=== PATIENT | female | born 1955 | race Caucasian/White ===

== ENCOUNTER 2023-10-05 06:29 | Day surgery (SDC) | payer MEDICARE, OTHER, SELFPAY ==
[2023-10-05 09:43] LABS: Glucose - Point of Care 137 mg/dl (70-99)
[2023-10-05 11:45] LABS: Glucose - Point of Care 127 mg/dl (70-99)
== END 2023-10-05 11:55 | disposition home or self-care (01) ==
LOC: SDS 06:29
PROVIDERS: ATTENDING PHYSICIAN Internal Medicine Gastroenterology
DX: K74.60 Unspecified cirrhosis of liver (principal); K22.2 Esophageal obstruction; K44.9 Diaphragmatic hernia without obstruction or gangrene; K31.89 Other diseases of stomach and duodenum
CPT/HCPCS: 43239; 88305; 82962; 88342

== ENCOUNTER → 2024-01-27 09:28 | Outpatient (REF) | payer MEDICARE, OTHER, SELFPAY | LOC: HWRAD 09:28 | PROVIDERS: ATTENDING PHYSICIAN Internal Medicine Transplant Hepatology; FAMILY PHYSICIAN Nurse Practitioner | DX: K74.69 Other cirrhosis of liver (principal) | CPT/HCPCS: 76700 ==

== ENCOUNTER 2025-07-06 23:13 | Inpatient (IN) | payer MEDICARE, OTHER, SELFPAY ==
[2025-07-06 17:01] VITALS: BMI 23.8
[2025-07-06 17:07] VITALS: BP 138/71
[2025-07-06 18:07] LABS: Hematocrit 40.3 % (37.0-47.0); Hemoglobin 13.0 g/dL (12.0-16.0); Mean Corp Hgb Conc. 32.3 g/dL (33.0-37.0); Mean Corpuscular Volume 80.6 fL (81.0-99.0); Nucleated Red Blood Cells % 0 %; Platelet Count 119 10^3/uL (130-400); Red Cell Dist. Width 15.1 % (11.5-14.5)
[2025-07-06 18:08] LABS: Urine Character Slightly Cloudy (Clear)
[2025-07-06 18:18] LABS: ALT (SGPT) 39 U/L (0-35); AST (SGOT) 43 U/L (14-36); Albumin 4.6 g/dl (3.5-5.0); Alkaline Phosphatase 175 U/L (38-126); Blood Urea Nitrogen 14 mg/dl (7-17); Calcium 9.8 mg/dl (8.4-10.2); Carbon Dioxide 24 mmol/L (22-30); Chloride 102 mmol/L (98-107); Glucose 204 mg/dl (70-99); Potassium 4.1 mmol/L (3.5-5.1); Sodium 137 mmol/L (135-145); Total Protein 7.9 g/dl (6.3-8.2); eGFR > 60.00
[2025-07-06] MEDS: NSS 1000 IV (18:29)
[2025-07-06 18:32] LABS: Urine Red Blood Cell 26-30 /HPF (0-2); Urine Squamous Cell >30 /LPF (Few)
--- NOTE | 2025-07-06 18:33 | ED.GENMED ---
History of Present Illness
General
Chief Complaint: Change in Mental Status
Time Seen by Provider: 07/06/25 18:17
Nursing documentation reviewed up to this point in time: agreed with
History of Present Illness
History of Present Illness:
69-year-old female brought to the ER by her for evaluation of generalized weakness, abruptly worsening dementia symptoms and poor appetite today. Patient was treated for UTI 2 weeks ago. She typically is able to ambulate independently but
has been reliant upon her due to witnessed unsafe gait today. No reported trauma. She is not on any blood thinners. She had a cough last week but this has improved. Has reports she has not had anything to eat today. He got her to drink
a juice box and that is all. She is an unreliable historian due to her history of dementia
Past History
Past History
ED Past Medical History: Arrthythmia (SVT), Asthma, GERD, HTN (3 meds) and Other
ED Past Surgical History: and Gynecological
Social History
Tobacco: Non-smoker
Alcohol: Occasional
Drug: None
Personal:
Living: with family
Employment: Employed
Family History
Family History: Hypertension
Review of Systems
Review of Systems
Allergies reviewed?: Yes
Phy Exam
Physical Exam
Physical Exam:
Patient is awake, alert, appears in no acute distress, head is NCAT, PERRL, EOMI mucous membranes tacky, conjunctiva pink, heart regular rate and rhythm without murmurs or ectopy, lungs are clear to auscultation without wheezes rales or rhonchi, no
JVD, abdomen is soft and nontender on palpation, extremities without edema, GCS is 14 due to confusion, left lower extremity with bright red erythematous blanching and tender raised rash on the anterior lower leg measuring 20 x 10 cm, increased
temperature overlying this rash compared to surrounding tissue, no calf pain on palpation, 2+ DP pulses present symmetric bilateral feet
Course
Orders/Labs/Results
Orders:
Orders
07/06/25 17:31
Complete Blood Count/With Diff Urgent
Comprehensive Metabolic Panel Urgent
Urinalysis Reflex To Culture Urgent
Date Specimen was Collected: 07/06/25
Time Specimen was Collected: 17:07
Urine Microscopic Reflex Cult Urgent
Urine Culture Urgent
ADINA Source: U
Specimen Description:
Date Specimen was Collected: 07/06/25
Time Specimen was Collected: 17:07
07/06/25 18:17
CT Head W/o Iv Contrast Urgent
Comment:
Reason For Exam: altered mental status
Acetaminophen [Tylenol] 1,000 mg PO NOW STA
07/06/25 18:27
0.9% Sodium Chloride 1000 ml [Nss] 1,000 ml IV BOLUS
CR Chest - 2 Views Urgent
Comment:
Reason For Exam: fever
Tib/Fib, Left 2 View [CR Leg Tibia/fibula Left 2 Vw] Urgent
Comment:
Reason For Exam: pain
07/06/25 18:28
Vancomycin [Vancocin] 1,500 mg 0.9% Sodium Chloride 500 ml [Nss] 500 ml IV NOW
07/06/25 18:31
Blood Culture Q30M
ADINA Source: Blood/Venous
Specimen Description:
07/06/25 18:36
Blood Culture Q30M
ADINA Source: Blood/Venous
Specimen Description:
Abnormal Lab Results
07/06/25
17:31
WBC 16.9 H 10^3/uL
(4.8-10.8)
MCV 80.6 L fL
(81.0-99.0)
MCH 26.0 L pg
(27.0-31.0)
MCHC 32.3 L g/dL
(33.0-37.0)
RDW 15.1 H %
(11.5-14.5)
Plt Count 119 L 10^3/uL
(130-400)
MPV 11.2 H fL
(7.4-10.4)
Abs Immat Gran (auto) 0.1 H 10^3/uL
(0-0.05)
Absolute Neuts (auto) 14.4 H 10^3/uL
(1.4-6.5)
Absolute Lymphs (auto) 1.1 L 10^3/uL
(1.2-3.4)
Absolute Monos (auto) 1.2 H 10^3/uL
(0.1-0.6)
Immature Gran % 0.8 H %
(0-0.5)
Neutrophils % 85.2 H %
(42.2-75.2)
Lymphocytes % 6.6 L %
(20.5-51.1)
Glucose 204 H mg/dl
(70-99)
AST 43 H U/L
(14-36)
ALT 39 H U/L
(0-35)
Alkaline Phosphatase 175 H U/L
(38-126)
Ur Occult Blood Reflex 1+ A
(Negative)
Urine RBC 26-30 A /HPF
(0-2)
Urine WBC (Reflex) 11-15 A /HPF
(0-5)
Urine Bacteria (Reflex) Moderate A
(Negative)
Urine Albumin (Reflex) 1+ A
(Neg - Trace)
07/06/25 17:31
07/06/25 17:31
White blood count is elevated. Kidney function preserved.UA appears to be a contaminated sample
Vital Signs
Initial and Last Documented VS:
Initial Vital Signs
Temp Pulse Resp BP Pulse Ox
100.9 F H 85 16 138/71 98
07/06/25 17:07 07/06/25 17:07 07/06/25 17:07 07/06/25 17:07 07/06/25 17:07
Last Documented Vital Signs
Temp Pulse Resp BP Pulse Ox
98.4 F 70 16 135/63 93
07/06/25 20:51 07/06/25 20:51 07/06/25 20:51 07/06/25 20:51 07/06/25 20:51
MDM/Problems Addressed
Differential Diagnosis Includes:
Differential diagnosis to consider but not limited to UTI, electrolyte dyscrasia, cellulitis, intracranial lesion, intracranial mass along with other etiologies considered
Chronic conditions affecting care:
Dementia, hypertension, asthma, migraines, SVT
*Pulse Oximetry
SaO2: 98
Oxygen Mode of Delivery: Room air
Patient hypoxic: no
*Critical Care Note
Total Time (30-74mins, 75-104mins- exclusive of procedures): Not Applicable
Update Note
Update Note:
Tylenol ordered for fever. Blood cultures added along with CXR and Xray of LLE. IV vancomycin ordered for cellulitis. Will also check CT though would suspect delerium related to infection/fever. present at bedside agrees with plan for
admission and has no questions at the current time.
2200: Awaiting xrays. I reviewed full pt presentation with the hospitalist who accepts pt for admission
ED Attending Note
-
Portions of this chart may have been created with voice recognition software.� Occasional wrong word or��sound alike� substitutions may have occurred due to the inherent limitations of voice recognition software.
Discharge Plan
Departure
Prescriptions:
No Action
esomeprazole magnesium [Nexium] 40 MG capsule,delayed release(DR/EC)
40 mg PO Daily
fluticasone propionate 1 SPRAY spray,suspension
2 sprays inhalation DAILYPRN PRN (Reason: allergies;both nostrils)
albuterol sulfate 1 PUFF HFA aerosol inhaler
2 puff inhalation Q4HPRN PRN (Reason: sob)
atenolol 50 MG tablet
100 mg PO HS
cholecalciferol (vitamin D3) 2,000 UNITS tablet
2,000 unit PO HS
multivitamin with folic acid [Tab-A-Roma] 1 TABLET tablet
1 tab PO HS
triamcinolone acetonide 1 APPLIC ointment
1 applic topical BIDPRN PRN (Reason: Eczema)
epinephrine [EpiPen] 0.3 MG/0.3/SYRINGE auto-injector
1 syringe IM PRN PRN (Reason: allergic reaction)
Patient Comments:
as per patient last taken 1 year ago
Bydureon BCise 2 MG/0.85 ML auto-injector
1 dose INJ MO
cetirizine 10 MG tablet
10 mg PO DAILY
sennosides [senna] 1 TABLET tablet
2 tab PO BIDPRN PRN (Reason: constipation) 0RF
amlodipine 10 MG tablet
10 mg PO DAILY Qty: 0 0RF
Rx Instructions:
Hold if systolic blood pressure <130 while on Tramadol.
hydrochlorothiazide 25 MG tablet
25 mg PO DAILY Qty: 0 0RF
Rx Instructions:
Hold if systolic blood pressure <130 while on Tramadol.
acetaminophen [Tylenol Extra Strength] 500 MG tablet
500 mg PO Q6HPRN PRN (Reason: breakthrough pain) Qty: 30 0RF
Rx Instructions:
Do not exceed >4000 mg daily due to history of fatty liver disease.
meclizine [Antivert] 25 mg tablet,chewable
12.5 mg PO TID PRN (Reason: dizziness) Qty: 20 0RF
albuterol sulfate 90 mcg/actuation HFA aerosol inhaler
2 puff inhalation Q6H PRN (Reason: shortness of breath or wheezing) Qty: 6.7 0RF
donepezil 10 mg/24 hour Patch Weekly
TRANSDERMAL WEEKLY
Referrals:
Magy Alonso CRNP [Family Provider, Family Practice]
Interventions
Interventions:
*Risk Screen - Suicide Last Done: 07/06/25 17:07
*General Assessment Last Done: 07/06/25 17:07
*Neglect/Abuse Screening Last Done: 07/06/25 17:07
*ED- Fall Risk Assessment Last Done: 07/06/25 17:07
*ED COVID-19 Vaccine History Last Done: 07/06/25 17:07
*ED Influenza Vaccine History Last Done: 07/06/25 17:07
ED- Neurological Assessment Last Done: 07/06/25 18:18
ED Swallowing Screen Last Done: 07/06/25 18:18
Discharge Date and Time
Print Language: ALBANIAN
[2025-07-06] MEDS: TYLENOL 1000 MG PO (18:46)
[2025-07-06 18:50] VITALS: BP 134/74
[2025-07-06] MEDS: VANCOCIN 530 MG IV (19:00)
[2025-07-06 20:42] VITALS: BP 135/63
[2025-07-06 20:51] VITALS: BP 135/63
[2025-07-06 21:00] VITALS: BP 128/58
[2025-07-06 22:24] VITALS: BP 126/67
--- NOTE | 2025-07-06 23:01 | HPS.HSE ---
Family Physician
-
Family Physician: JANET Monahan
Chief Complaint
-
altered mental status
History of Present Illness
69-year-old female past medical history of dementia, osteoarthritis, hypertension, hyperlipidemia, incomplete right bundle branch block, remote history of SVT, asthma, CKD, diabetes, GERD, hiatal hernia, upper GI bleeding, esophageal strictures,
diverticulosis, IBS, fatty liver disease, migraines, hypothyroidism, hyperlipidemia, iron deficiency anemia, eczema, osteopenia, hyponatremia, obesity, presenting for worsening change in mental status over the past few days. Over the past 2 days
she had stool incontinence without diarrhea. She had some difficulty speaking and was more fatigued. She had unsafe gait today. No trauma.
She had some sore throat and cough a few days ago but this is improved. Denies shortness of breath. She did have some dry heaving today.
She had a urinary tract infection few weeks ago due to symptoms of dysuria treated with antibiotic with resolution.
Today she was noticed to have some redness and swelling and pain of her left lower extremity. Patient did not notice this until today. No trauma or bug bites.
She does not smoke or drink alcohol.
Medical History
Past Medical History
Past Medical History: Reports Other (dementia, osteoarthritis, hypertension, hyperlipidemia, incomplete right bundle branch block, remote history of SVT, asthma, CKD, diabetes, GERD, hiatal hernia, upper GI bleeding, esophageal strictures,
diverticulosis, IBS, fatty liver disease, migraines, hypothyroidism, hyperlipidemia, iron deficie)
Past Surgical History: Reports Other (Laparoscopy, myomectomy, , uterine artery embolization, endoscopic dilation, colonoscopy x 3, LASE[facility] eye surgery,)
Social History
Tobacco: Non-smoker
Alcohol: None
Drug: None
Family History
Family History: Not pertinent
Allergies / Home Medications
Allergies reflects when Allergies were last updated in [facility].
Home Medications with original date entered in [facility]
Allergy/Medication List:
Allergies
Allergy/AdvReac Type Severity Reaction Status Date / Time
Egg Derived Allergy Unknown severe egg Verified 07/06/25 18:28
allergy
morphine Allergy Unknown Vomiting Verified 07/06/25 18:28
latex Allergy itching, Verified 07/06/25 18:28
hives
propofol Allergy severe egg Verified 07/06/25 18:28
allergy
eggs Allergy Unknown Vomiting Uncoded 07/06/25 18:28
Home Medications
albuterol sulfate 90 mcg/actuation aerosol inhaler 2 puff inhalation Q4HPRN PRN sob 10/22/14
atenolol 50 mg tablet 100 mg PO HS Heart disease/condition 10/22/14
cholecalciferol (vitamin D3) 50 mcg (2,000 unit) tablet 2,000 unit PO HS Supplement 10/22/14
esomeprazole magnesium 40 mg capsule,delayed release (Nexium) 40 mg PO Daily Gastrointestinal issue 10/22/14
fluticasone propionate 50 mcg/actuation nasal spray,suspension 2 sprays inhalation DAILYPRN PRN allergies;both nostrils 10/22/14
multivitamin with folic acid 400 mcg tablet (Tab-A-Roma) 1 tab PO HS Supplement 10/22/14
epinephrine 0.3 mg/0.3 mL injection, auto-injector (EpiPen) 1 syringe IM PRN PRN allergic reaction 06/15/21
exenatide microspheres 2 mg/0.85 mL subcutaneous auto-injector (Bydureon BCise) 1 dose INJ MO Diabetes 06/15/21
triamcinolone acetonide 0.1 % topical ointment 1 applic topical BIDPRN PRN Eczema 06/15/21
cetirizine 10 mg tablet 10 mg PO DAILY Allergies 07/09/21
acetaminophen 500 mg tablet (Tylenol Extra Strength) 500 mg PO Q6HPRN PRN breakthrough pain #30 tabs 07/10/21
amlodipine 10 mg tablet 10 mg PO DAILY Heart disease/condition ##0 07/10/21
hydrochlorothiazide 25 mg tablet 25 mg PO DAILY Fluid retention/Swelling ##0 07/10/21
sennosides 8.6 mg tablet (senna) 2 tab PO BIDPRN PRN constipation 07/10/21
meclizine 25 mg chewable tablet (Antivert) 12.5 mg (1/2 x 25 mg) PO TID PRN dizziness #20 tabs 02/26/23
albuterol sulfate 90 mcg/actuation aerosol inhaler 2 puff inhalation Q6H PRN shortness of breath or wheezing #6.7 grams 08/13/23
donepezil 10 mg/24 hour weekly transdermal patch mg transdermal WEEKLY 10/05/23
Review of Systems
-
History Source: Patient
A 12 point ROS was completed and negative except as noted: Yes
Constitutional: Reports No Symptoms
EENT: Reports No Symptoms
Respiratory: Reports No Symptoms
Cardiac: Reports No Symptoms
Abdomen/GI: Reports No Symptoms
: Reports No Symptoms
Musculoskeletal: Reports No Symptoms
Skin: Reports See HPI
Neurological: Reports No Symptoms
Endocrine: Reports No Symptoms
Hematologic/Lymphatic: Reports No Symptoms
Psych: Reports No Symptoms
Physical Exam
Vital Signs
Vital Signs
Temp Pulse Resp BP Pulse Ox
98.4 F 70 16 126/67 94
07/06/25 20:51 07/06/25 22:27 07/06/25 20:51 07/06/25 22:24 07/06/25 22:25
Physical Exam
General: Well Developed, Well Nourished and No Apparent Distress
HEENT: NormoCephalic, Moist mucous membranes and Atraumatic
Respiratory: Clear
Cardiac: S1/S2 and Regular Rhythm; No Murmur or Rub
GI: Soft, Non Tender, Non Distended and Normal Bowel Sounds; No Organomegaly
Rectal: Deferred by Provider
Musculoskeletal: No Clubbing, No Cyanosis and No Edema
Skin: Other (left lower extremity redness and swelling ); No Rash
Neuro: Nonfocal/grossly intact
Laboratory Results
-
07/06/25 17:31
07/06/25 17:31
Laboratory Results
Total Bilirubin 1.2 mg/dl (0.2-1.3) 07/06/25 17:31
AST 43 U/L (14-36) H 07/06/25 17:31
ALT 39 U/L (0-35) H 07/06/25 17:31
Alkaline Phosphatase 175 U/L (38-126) H 07/06/25 17:31
Data Reviewed
-
Lab Data: Labs Reviewed by me
Old Records: Reviewed
Impression/Plan
-
IMPRESSION:
PLAN:
# Sepsis (AMS and fever)/acute metabolic encephalopathy superimposed on chronic dementia secondary to cellulitis left lower extremity
-Fever 101, leukocytosis
-CT head shows no acute abnormality
-Urinalysis not particularly impressive
-Fibula x-ray pending
-Blood cultures
-IV fluids
- Cefazolin
# Cough/sore throat now improved
- Check COVID and influenza
- Chest x-ray pending
Dementia
- continue donepezil
Osteoarthritis
Essential hypertension
- Continue amlodipine, atenolol, hydrochlorothiazide
Hyperlipidemia
Incomplete right bundle branch
Remote history of SVT
Asthma
- Continue albuterol
CKD
Type 2 diabetes
GERD/hiatal hernia
- Continue esomeprazole
Upper GI bleeding
Esophageal strictures
Colon polyps
Diverticulosis
IBS
Fatty liver disease
Migraines
Hypothyroidism
Hyperlipidemia
Iron deficiency
Eczema
Osteopenia
History of hypertension
Obesity
Full code
DVT prophylaxis�heparin
Regular diet
[2025-07-06 23:24] LABS: COVID-19 Antigen Negative (Negative)
[2025-07-07 00:28] VITALS: BP 172/80; BMI 21.8
[2025-07-07] MEDS: NSS 1000 IV ×2 (01:32→10:37)
[2025-07-07] MEDS: ANCEF 10 IV ×3 (02:00→17:31)
[2025-07-07] MEDS: TYLENOL 650 MG PO (05:07)
[2025-07-07 06:27] LABS: Hematocrit 35.5 % (37.0-47.0); Hemoglobin 11.7 g/dL (12.0-16.0); Mean Corp Hgb Conc. 33.0 g/dL (33.0-37.0); Mean Corpuscular Volume 80.7 fL (81.0-99.0); Nucleated Red Blood Cells % 0 %; Platelet Count 104 10^3/uL (130-400); Red Cell Dist. Width 15.0 % (11.5-14.5)
[2025-07-07 06:35] VITALS: BP 132/68
[2025-07-07 06:54] LABS: ALT (SGPT) 28 U/L (0-35); AST (SGOT) 28 U/L (14-36); Albumin 3.5 g/dl (3.5-5.0); Alkaline Phosphatase 151 U/L (38-126); Blood Urea Nitrogen 15 mg/dl (7-17); Calcium 9.1 mg/dl (8.4-10.2); Carbon Dioxide 22 mmol/L (22-30); Chloride 105 mmol/L (98-107); Estimated Creatinine Clearance 69 ml/min; Glucose 137 mg/dl (70-99); Potassium 3.8 mmol/L (3.5-5.1); Sodium 132 mmol/L (135-145); Total Protein 6.6 g/dl (6.3-8.2); eGFR > 60.00
[2025-07-07 07:00] VITALS: BP 112/59
[2025-07-07] MEDS: HEPARIN 5000 UNITS SC (08:38)
--- NOTE | 2025-07-07 12:46 | W.PN.HOSP.TC ---
Today's Communication/Plan
-
Await cultures
Continue Ancef
Follow labs
Assessment / Plan
Assessment / Plan
69-year-old female with altered mental status
X-ray of the tibia/fibula-no fracture or dislocation. Small plantar calcaneal spur is incidentally noted.
Chest x-ray-small focus of linear parenchymal opacity within the left lower lobe focal atelectasis although pneumonia could have similar appearance.
Head CT-no evidence of acute changes
CVS: S1-S2 normal
Chest: CTA B/L
Abdomen: Soft, NT , Bowel sounds present
Extremities: No edema,redness LLE
MEDICAL MANAGEMENT TRAINER: confused, no neck stiffness
# Sepsis fever 101 with leukocytosis on admission
Possible source left lower extremity cellulitis
COVID serology negative
Started on Ancef-continue
Blood cultures pending
Slightly elevated LFTs-better
# Abnormal urine analysis-unlikely UTI-discussed with nursing at bedside has a lot of squamous cells. Await culture
# Mild hyponatremia-watch if not getting better will need osmolality studies
# Metabolic encephalopathy secondary to above and underlying dementia
# Hypertension-was on amlodipine and atenolol in the past. Needs medications reconciled.
# Diabetes-need to get medications reconciled. Accu-Cheks and sliding scale coverage
# Dementia-on Aricept as outpatient. Follows up with Dr. Yuniel Scales at [place]. Sounds like she gets Lecanemab infusions every 2 weeks .
# Incomplete right bundle branch block
# Chronic anemia
# Asthma-continue albuterol inhalers as needed
# History of upper GI bleed/esophageal strictures-continue PPI
# Fatty liver disease
# History of migraines
# Diverticulosis
# DVT prophylaxis-Lovenox
# Full code
Discussed with nursing at bedside
Discussed with patient's in detail. She has had dementia at least until 2020. CODE STATUS was addressed. He wants to leave her as full code for now.
Part of this note was created using voice recognition system. Occasional wrong word or��sound alike� substitutions may have inadvertently occurred due to the inherent limitations of voice recognition software. If noted kindly bring it to my
attention for correction.
Anticipated Discharge: Within 24 hours
Subjective/Interval History
-
Date of Service: July 07, 2025
Objective Data
-
Labs:
Laboratory Results
07/07/25
05:26
WBC 12.1 H
Hgb 11.7 L
Hct 35.5 L
Plt Count 104 L
Sodium 132 L
Potassium 3.8
Chloride 105
Carbon Dioxide 22
BUN 15
Creatinine 0.7
Glucose 137 H
Calcium 9.1
Total Bilirubin 1.1
AST 28
ALT 28
Alkaline Phosphatase 151 H
Vital Signs:
Vital Signs
Temp Pulse Resp BP Pulse Ox
98.5 F 73 16 112/59 97
07/07/25 07:00 07/07/25 07:00 07/07/25 07:00 07/07/25 07:00 07/07/25 07:00
I&O
07/06/25 07/07/25 07/08/25
06:59 05:59 06:59
Intake Total 600 / 600
Balance 600 / 600
[2025-07-07 15:00] VITALS: BP 126/73
--- NOTE | 2025-07-07 15:47 | CM ---
photo lab manager reviewed patient's chart and met with patient and patient lives with her spouse in a 2 story home, patient is independent with adl's and ambulation, no dme, home with spouse when stable, no needs.
PCP: Ebony Alonso [employer]
Pharmacy: [facility] in [place].
[2025-07-07] MEDS: LOVENOX 40 MG SC (17:30)
--- NOTE | 2025-07-07 22:07 | PTCARENOTE ---
At 21:50 this rn entered pt room to address IV pump alarm. Pt had removed her own IV and was in the bathroom. Pt stated she needed to use the bathroom as she was having diarrhea. Pt assessed, no complaints of pain, vss. Pressure applied to IV site,
area cleansed and covered with clean dressing. Pt educated on importance of using call alberts for needs, chair and bed alarm in place. Care ongoing.
[2025-07-07 23:00] VITALS: BP 136/70
[2025-07-08] MEDS: ANCEF 10 IV ×3 (02:10→18:28)
[2025-07-08 07:10] VITALS: BP 137/72
[2025-07-08 07:14] LABS: Hematocrit 36.2 % (37.0-47.0); Hemoglobin 11.8 g/dL (12.0-16.0); Mean Corp Hgb Conc. 32.6 g/dL (33.0-37.0); Mean Corpuscular Volume 79.0 fL (81.0-99.0); Platelet Count 96 10^3/uL (130-400); Red Cell Dist. Width 15.1 % (11.5-14.5)
--- NOTE | 2025-07-08 07:26 | W.PN.HOSP.TC ---
Addendum entered and electronically signed by Robin Vanessa MD 07/08/25 13:40:
Seen and examined the patient. Agree with the plan of care of the resident. See changes in my documentation
69-year-old female with altered mental status
X-ray of the tibia/fibula-no fracture or dislocation. Small plantar calcaneal spur is incidentally noted.
Chest x-ray-small focus of linear parenchymal opacity within the left lower lobe focal atelectasis although pneumonia could have similar appearance.
Head CT-no evidence of acute changes
CVS: S1-S2 normal
Chest: CTA B/L
Abdomen: Soft, NT , Bowel sounds present
Extremities: No edema,redness LLE, skin hemorrhage noted.
ALMOND BLANCHER HAND: confused, no neck stiffness
# Sepsis fever 100.9 with leukocytosis on admission
Possible source left lower extremity cellulitis
Ultrasound negative for DVT
COVID serology negative
Started on Ancef-continue
Blood cultures Negative so far
Slightly elevated LFTs-better
Yoan bandage for compression therapy. Continue antibiotics and observe
# Abnormal urine analysis-unlikely UTI-discussed with nursing at bedside has a lot of squamous cells. Await culture
# Mild hyponatremia-improved
# Metabolic encephalopathy secondary to above and underlying dementia
# Hypertension-was on amlodipine and atenolol . Without antihypertensives blood pressure seems to be stable. Hold off
# Jjcvorqw-Efmc-Clivr and sliding scale coverage. Continue Jardiance
# Dementia-on Aricept as outpatient. Follows up with Dr. Yuniel Scales at [place]. Sounds like she gets Lecanemab infusions every 2 weeks .
# Incomplete right bundle branch block
# Chronic anemia
# Asthma-continue albuterol inhalers as needed
# History of upper GI bleed/esophageal strictures-continue PPI
# Fatty liver disease
# History of migraines
# Diverticulosis
# DVT prophylaxis-Lovenox
# Full code
Discussed with nursing at bedside
Part of this note was created using voice recognition system. Occasional wrong word or��sound alike� substitutions may have inadvertently occurred due to the inherent limitations of voice recognition software. If noted kindly bring it to my
attention for correction.
Original Note:
Today's Communication/Plan
-
Resume home meds
Lower extremity ultrasound
Discontinue IV fluids
Yoan wrap and elevation
Assessment / Plan
Assessment / Plan
69-year-old female with altered mental status
X-ray of the tibia/fibula-no fracture or dislocation. Small plantar calcaneal spur is incidentally noted.
Chest x-ray-small focus of linear parenchymal opacity within the left lower lobe focal atelectasis although pneumonia could have similar appearance.
Head CT-no evidence of acute changes
# Sepsis fever 101 with leukocytosis on admission
Possible source left lower extremity cellulitis
COVID serology negative
Ancef-continue
Blood cultures NGTD
Slightly elevated LFTs-improved
Leukocytosis also resolved
Nurse for Yoan wrap and encouraged the patient to keep the leg elevated
# Abnormal urine analysis-unlikely UTI-discussed with nursing at bedside has a lot of squamous cells. Culture negative
# Mild hyponatremia-resolved
# Metabolic encephalopathy secondary to above and underlying dementia
# Hypertension-was on amlodipine and atenolol at home. Will hold blood pressure medication for now given that her blood pressure is in good range.
# Diabetes-need to get medications reconciled. Accu-Cheks and sliding scale coverage
# Dementia-on Aricept as outpatient. Follows up with Dr. Yuniel Scales at [place]. Sounds like she gets Lecanemab infusions every 2 weeks .
# Incomplete right bundle branch block
# Chronic anemia
# Asthma-continue albuterol inhalers as needed
# History of upper GI bleed/esophageal strictures-continue PPI
# Fatty liver disease
# History of migraines
# Diverticulosis
# DVT prophylaxis-Lovenox
# Full code
Anticipated Discharge: Within 24 hours
Subjective/Interval History
-
Date of Service: July 08, 2025
AFVSS. Offers no new complaints however patient is also confused.
Objective Data
-
Labs:
Laboratory Results
07/08/25
06:11
WBC 6.0
Hgb 11.8 L
Hct 36.2 L
Plt Count 96 L
Sodium Pending
Potassium Pending
Chloride Pending
Carbon Dioxide Pending
BUN Pending
Creatinine Pending
Glucose Pending
Calcium Pending
Vital Signs:
Vital Signs
Temp Pulse Resp BP Pulse Ox
98.3 F 69 18 136/70 99
07/07/25 23:00 07/07/25 23:00 07/07/25 23:00 07/07/25 23:00 07/07/25 23:00
I&O
07/07/25 07/08/25 07/09/25
05:59 06:59 06:59
Intake Total 600 / 600 2009
Balance 600 / 600 2009
Review of Systems
-
Unable to obtain full review of systems at this time due to: Dementia
History Source: Patient
All other systems: Reviewed and negative
Physical Exam
-
General: No Apparent Distress and Comfortable
Respiratory: Clear to Auscultation and Non Labored Respirations
Cardiac: Regular Rhythm and S1/S2
GI: Soft, Nontender and Nondistended
Musculoskeletal: Other (Left lower extremity erythema, swelling mild tenderness to touch)
Skin: Warm
Neuro: Awake; Negative Alert or Oriented
Psych: Calm
Data Reviewed
-
Labs: Labs Reviewed by me, Discussed with Physician and Discussed with Patient
[2025-07-08 07:36] LABS: Blood Urea Nitrogen 10 mg/dl (7-17); Calcium 8.4 mg/dl (8.4-10.2); Carbon Dioxide 25 mmol/L (22-30); Chloride 106 mmol/L (98-107); Estimated Creatinine Clearance 81 ml/min; Glucose 159 mg/dl (70-99); Potassium 3.7 mmol/L (3.5-5.1); Sodium 136 mmol/L (135-145); eGFR > 60.00
[2025-07-08] MEDS: NSS 1000 IV (08:27)
[2025-07-08] MEDS: NSS IV (08:30)
[2025-07-08 12:11] LABS: Glucose - Point of Care 201 mg/dl (70-99)
[2025-07-08] MEDS: NOVOLOG FLEXPEN-LOW RESISTANCE 2 UNITS SC (13:07)
[2025-07-08 15:15] VITALS: BP 141/72
--- NOTE | 2025-07-08 17:28 | CM ---
Patient seen at bedside on . NO change in anticipated discharge home with no needs anticipated at this time. CM will continue to follow for discharge planning needs.
Plan; home with no needs
[2025-07-08 17:56] LABS: Glucose - Point of Care 164 mg/dl (70-99)
[2025-07-08] MEDS: NOVOLOG FLEXPEN-LOW RESISTANCE SC (18:05)
[2025-07-08] MEDS: FLUSH (NSS) 2 FLUSH IV (18:27)
[2025-07-08] MEDS: LOVENOX 40 MG SC (18:27)
[2025-07-08 21:44] LABS: Glucose - Point of Care 203 mg/dl (70-99)
[2025-07-08 23:03] VITALS: BP 146/67
[2025-07-09] MEDS: ANCEF 10 IV ×2 (01:49→09:24)
[2025-07-09 07:45] LABS: Glucose - Point of Care 176 mg/dl (70-99)
[2025-07-09 07:50] VITALS: BP 135/72
[2025-07-09] MEDS: PEPCID 20 MG PO (08:19)
[2025-07-09] MEDS: FARXIGA 10 MG PO (08:19)
[2025-07-09] MEDS: PROTONIX 40 MG PO (08:19)
[2025-07-09] MEDS: LIPITOR 10 MG PO (08:19)
[2025-07-09] MEDS: NOVOLOG FLEXPEN-LOW RESISTANCE 1 UNITS SC ×2 (08:20→12:01)
[2025-07-09 11:41] LABS: Glucose - Point of Care 185 mg/dl (70-99)
--- NOTE | 2025-07-09 12:00 | W.PN.HOSP.TC ---
Addendum entered and electronically signed by Robin Vanessa MD 07/09/25 15:13:
Spoke to and updated.
He brought the advance directives yesterday. Needs to be scanned into the system
Plan of care and follow-up discussed. Prescription given for lab work
Discharge coordination time more than 30 minutes
Addendum entered and electronically signed by Robin Vanessa MD 07/09/25 13:24:
CBC noted platelets are coming up.
Repeat CBC in 1 week
Okay for discharge left a message for to call back
Original Note:
Today's Communication/Plan
-
CBC to check platelets
If okay will discharge today
Assessment / Plan
Assessment / Plan
69-year-old female with altered mental status
X-ray of the tibia/fibula-no fracture or dislocation. Small plantar calcaneal spur is incidentally noted.
Chest x-ray-small focus of linear parenchymal opacity within the left lower lobe focal atelectasis although pneumonia could have similar appearance.
Head CT-no evidence of acute changes
CVS: S1-S2 normal
Chest: CTA B/L
Abdomen: Soft, NT , Bowel sounds present
Extremities: No edema,redness LLE, skin hemorrhage noted.
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
# Sepsis fever 100.9 with leukocytosis on admission
Possible source left lower extremity cellulitis
Ultrasound negative for DVT
COVID serology negative
Started on Ancef-change to Ceftin at discharge.
Blood cultures Negative so far
Slightly elevated LFTs-better
Yoan bandage for compression therapy.
# Thrombocytopenia-repeat CBC
# Abnormal urine analysis-unlikely UTI-discussed with nursing at bedside has a lot of squamous cells. Cx neg.
# Mild hyponatremia-improved
# Metabolic encephalopathy secondary to above and underlying dementia
# Hypertension-was on amlodipine and atenolol . Restart at half doses.
# Xfdsyljn-Qkdb-Btyty and sliding scale coverage. Continue Jardiance
# Dementia-on Aricept as outpatient. Follows up with Dr. Yuniel Scales at [facility]. Sounds like she gets Lecanemab infusions every 2 weeks .
# Incomplete right bundle branch block
# Chronic anemia
# Asthma-continue albuterol inhalers as needed
# History of upper GI bleed/esophageal strictures-continue PPI
# Fatty liver disease
# History of migraines
# Diverticulosis
# DVT prophylaxis-Lovenox
# Full code
Discussed with nursing at bedside
Anticipated Discharge: Today
Subjective/Interval History
-
Date of Service: July 09, 2025
Objective Data
-
Labs:
Laboratory Results
07/09/25
12:00
WBC Pending
Hgb Pending
Hct Pending
Plt Count Pending
Vital Signs:
Vital Signs
Temp Pulse Resp BP Pulse Ox
98.7 F 70 18 135/72 95
07/09/25 07:50 07/09/25 07:50 07/09/25 07:50 07/09/25 07:50 07/09/25 07:50
I&O
07/08/25 07/09/25 07/10/25
06:59 06:59 06:59
Intake Total 2009 240 / 240
Balance 2009 240 / 240
[2025-07-09 12:28] LABS: Hematocrit 36.7 % (37.0-47.0); Hemoglobin 12.1 g/dL (12.0-16.0); Mean Corp Hgb Conc. 33.0 g/dL (33.0-37.0); Mean Corpuscular Volume 81.0 fL (81.0-99.0); Platelet Count 116 10^3/uL (130-400); Red Cell Dist. Width 14.8 % (11.5-14.5)
[2025-07-09] MEDS: NORVASC 5 MG PO (12:59)
--- NOTE | 2025-07-09 15:13 | W.DS.TRANS ---
Addendum entered and electronically signed by Robin Vanessa MD 07/09/25 16:16:
Dictation- [id number]
Original Note:
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
-
Discharge Instructions:
Discharge Diagnosis/Procedures Cellulitis left leg
Thrombocytopenia
Hide hypertension
Diabetes
Dementia
Incomplete right bundle branch block
Asthma
History of upper GI bleed
Fatty liver disease
Diverticulosis
Diet Diabetic, Carb Controlled
Activity As tolerated
Driving Restrictions No driving
Blood Work CBC 1 week
Other Services VN
Instructions:
Stand-Alone Forms:
Changes to Home Medications: Yes
Discharge Medications:
DC Medications w/original date entered in [employer]
albuterol sulfate 90 mcg/actuation aerosol inhaler 2 puff inhalation Q4HPRN PRN sob 10/22/14
cholecalciferol (vitamin D3) 50 mcg (2,000 unit) tablet 2,000 unit PO BID Supplement 10/22/14
esomeprazole magnesium 40 mg capsule,delayed release (Nexium) 40 mg PO Daily Gastrointestinal issue 10/22/14
fluticasone propionate 50 mcg/actuation nasal spray,suspension 2 sprays inhalation DAILYPRN PRN allergies;both nostrils 10/22/14
multivitamin with folic acid 400 mcg tablet (Tab-A-Roma) 1 tab PO HS Supplement 10/22/14
epinephrine 0.3 mg/0.3 mL injection, auto-injector (EpiPen) 1 syringe IM PRN PRN allergic reaction 06/15/21
cetirizine 10 mg tablet 10 mg PO DAILY Allergies 07/09/21
acetaminophen 500 mg tablet (Tylenol Extra Strength) 500 mg PO Q6HPRN PRN breakthrough pain #30 tabs 07/10/21
donepezil 10 mg/24 hour weekly transdermal patch 1 mg transdermal WEEKLY Dementia 10/05/23
ondansetron 8 mg disintegrating tablet 8 mg PO Q8H PRN nausea 07/07/25
amlodipine 10 mg tablet 5 mg (1/2 x 10 mg) PO DAILY Heart disease/condition #0 tabs 07/09/25
atenolol 50 mg tablet 50 mg PO HS Heart disease/condition #0 tabs 07/09/25
atorvastatin 10 mg tablet 10 mg PO DAILY High cholesterol #0 tabs 07/09/25
cefuroxime axetil 500 mg tablet 500 mg PO BID Skin issues #12 tabs 07/09/25
empagliflozin 10 mg tablet (Jardiance) 10 mg PO DAILY Diabetes #0 tabs 07/09/25
famotidine 20 mg tablet 20 mg PO DAILY Gastrointestinal issue #0 tabs 07/09/25
lecanemab-irmb 100 mg/mL intravenous solution 600 mg (6 mL) IV Q2W dementia #0 mL 07/09/25
tirzepatide 5 mg/0.5 mL subcutaneous pen injector (Mounjaro) 5 mg (0.5 mL) SC QWEEK Diabetes #0 mL 07/09/25
Home Medication Changes
Ceftin is new
Amlodipine and atenolol doses were reduced
Pending Results: No
[2025-07-09 15:28] VITALS: BP 138/80
--- NOTE | 2025-07-09 15:30 | CM ---
Discharge order noted.
Both pt and her are aware, expressed their agreement and stated he will transport pt home.
IMM reviewed, placed on chart, pt has a copy.
MD consult to arrange [facility] services noted. CM discussed it with pt and her and they preferred VN. A referral to VN made.
Please fax discharge instructions to [facility] [phone].
D/C plan: home no needs. to transport.
--- NOTE | 2025-07-09 15:37 | VNURNOTE ---
Home Health Liaison spoke with patient's spouse to discuss [facility] nurse/therapy, visits, schedule and homebound status. He is agreeable and understands that visits at home will be 2-3 x per week to assess and teach medical management. Spouse is
aware that [facility] will contact them for start of care within a week after discharge from . Provided contact number for [facility].
[facility] referral completed in [facility].
--- NOTE | 2025-07-11 12:01 | PN.CDI ---
CDI
- -
CDI:
Physician Documentation Request
Admit Date: 07/06/25 23:[address] Kan,
[facility] is using an adapted version of the 2016 Third International Consensus Definitions for Sepsis and Septic Shock (Sepsis-3) where sepsis is defined as life threatening organ dysfunction caused by a deregulated host response to infection.
Please reference the official [facility] Sepsis Recognition Tool for further information, which can be found on the Intranet under Infection Prevention.
07/06 H&P, 'Sepsis (AMS and fever)/acute metabolic encephalopathy superimposed on chronic dementia secondary to cellulitis left lower extremity
-Fever 101, leukocytosis....- Cefazolin.'
07/08 PN, 'Sepsis fever 101 with leukocytosis on admission...Possible source left lower extremity cellulitis...Metabolic encephalopathy secondary to above and underlying dementia.'
.
Based on your medical judgment, can you please clarify whether or not the above organ dysfunction is related to or due to sepsis?
Sepsis due to cellulitis left lower extremity with organ dysfunction of acute metabolic encephalopathy
Cellulitis left lower extremity only
Other
Use of terms such as suspected, likely, concern for, or probable (associated with a specific diagnosis that is being evaluated, monitored, or treated as if it exists) are acceptable and can be coded in the inpatient setting when documented at the
time of discharge.
Please use your independent medical judgement in providing your response.
Thank you,
Allison SRTOUD,RN,CCDS
CDI Specialist
Available via tiger text
== END 2025-07-09 16:30 | disposition home health service (06) | DRG 871 ==
LOC: 2 SOUTH 23:13
PROVIDERS: ADMITTING PHYSICIAN Hospitalist; ATTENDING PHYSICIAN Hospitalist; EMERGENCY PHYSICIAN Emergency Medicine; FAMILY PHYSICIAN Nurse Practitioner
DX: A41.9 Sepsis, unspecified organism (principal); G93.41 Metabolic encephalopathy; E87.1 Hypo-osmolality and hyponatremia; I47.10 Supraventricular tachycardia, unspecified; L03.116 Cellulitis of left lower limb; R65.20 Severe sepsis without septic shock; Z11.52 Encounter for screening for COVID-19; D69.6 Thrombocytopenia, unspecified; Z87.440 Personal history of urinary (tract) infections; N18.9 Chronic kidney disease, unspecified; I12.9 Hypertensive chronic kidney disease with stage 1 through stage 4 chronic kidney disease, or unspecified chronic kidney disease; I45.10 Unspecified right bundle-branch block; J45.909 Unspecified asthma, uncomplicated; E11.22 Type 2 diabetes mellitus with diabetic chronic kidney disease; K76.0 Fatty (change of) liver, not elsewhere classified; F02.80 Dementia in other diseases classified elsewhere, unspecified severity, without behavioral disturbance, psychotic disturbance, mood disturbance, and anxiety; E78.5 Hyperlipidemia, unspecified; K21.9 Gastro-esophageal reflux disease without esophagitis; L30.9 Dermatitis, unspecified; M85.80 Other specified disorders of bone density and structure, unspecified site; E03.9 Hypothyroidism, unspecified; E66.9 Obesity, unspecified; Z91.040 Latex allergy status; Z88.5 Allergy status to narcotic agent; Z86.0100 Personal history of colon polyps, unspecified; K58.9 Irritable bowel syndrome, unspecified; D50.9 Iron deficiency anemia, unspecified
CPT/HCPCS: 70450; 71046; 73590; 80048; 80053; 81003; 81015; 82962; 85025; 85027; 87040; 87086; 87502; 87811; 93971; 96361; 96365; 99285

== ENCOUNTER → 2025-07-26 10:19 | Outpatient (REF) | payer MEDICARE, OTHER, SELFPAY | LOC: RAD 10:19 | PROVIDERS: ATTENDING PHYSICIAN Family Medicine | DX: M79.662 Pain in left lower leg (principal) | CPT/HCPCS: 73590 ==